=== PATIENT | female | born 1990 | race Caucasian/White ===

== ENCOUNTER 2022-09-02 14:37 | Outpatient (CLI) | payer BC, MEDICAID, SELFPAY ==
[2022-09-02 18:15] LABS: Free T4 Free Thyroxine 0.89 ng/mL (0.78-2.19)
[2022-09-06 02:02] LABS: Thyroid Peroxidase Antibodies 2839 IU/mL (<9)
[2022-09-06 19:32] LABS: Thyrotropin Receptor Antibody <1.00 IU/L (<=2.00)
[2022-09-07 14:45] LABS: Thyroid Stimulating Immunoglob 158 % baseline (<140)
== END 2022-09-02 14:38 | disposition home or self-care (01) ==
LOC: ANHWCLAB 14:39
PROVIDERS: Visit Provider Internal Medicine
DX: E03.9 Hypothyroidism, unspecified (principal)
CPT/HCPCS: 36415; 83519; 84439; 84443; 84445; 86376

== ENCOUNTER 2022-12-14 11:30 | Outpatient (CLI) | payer OTHER, SELFPAY ==
[2022-12-14 18:01] LABS: Thyroid Stimulating Hormone 0.213 uIU/mL (0.465-4.680)
[2022-12-14 18:12] LABS: Free T4 Free Thyroxine 1.26 ng/mL (0.78-2.19)
== END 2022-12-14 11:31 | disposition home or self-care (01) ==
LOC: ANHWCLAB 11:34
PROVIDERS: Visit Provider Internal Medicine
DX: E03.9 Hypothyroidism, unspecified (principal)
CPT/HCPCS: 36415; 84439; 84443